=== PATIENT | female | born 1950 | race Caucasian/White ===

== ENCOUNTER 2016-11-29 08:16 | Emergency (ER) | payer OTHER ==
--- NOTE | 2016-11-29 09:26 | RADIOLOGY REPORT (SQ) ---
EXAM DESCRIPTION: ANKLE LEFT COMPLETE COMPLETED DATE/TIME: 11/29/2016 9:00 am REASON FOR STUDY: bed3 +deformity COMPARISON: None. NUMBER OF VIEWS: Three views. TECHNIQUE: AP, lateral, and oblique radiographic images acquired of the left ankle. LIMITATIONS: Artifact from aluminum splint FINDINGS: MINERALIZATION: Normal. BONES: Acute trimalleolar fracture. There is lateral and dorsal subluxation of the talus with respec t to the distal tibia articular surface. JOINTS: Disrupted ankle mortise SOFT TISSUES: Diffuse soft tissue swelling OTHER: Tiny plantar calcaneal spur IMPRESSION: Acute trimalleolar fracture with disrupted ankle mortise and dorsal and lateral subluxat ion of the talus with respect to the distal tibia TECHNICAL DOCUMENTATION: JOB ID: [id number] [employer]- All Rights Reserved
[2016-11-29] MEDS ORDERED: ONDANSETRON HCL INJ/PF 4 MG/2 ML SDV IV ONE (09:28)
[2016-11-29] MEDS ORDERED: HYDROMORPHONE HCL INJ/PF 2 MG/ML AMPULE IV ONE (09:28)
[2016-11-29] MEDS ORDERED: MIDAZOLAM 2 MG/2 ML INJ IV ONE (09:39)
[2016-11-29] MEDS ORDERED: KETAMINE HCL INJ 500 MG/10 ML VIAL IV ONE (09:39)
--- NOTE | 2016-11-29 10:44 | ER Document Report ---
ED General - General Chief Complaint: Ankle Injury Stated Complaint: LEFT ANKLE INJURY Time Seen by Provider: 11/29/16 08:50 - HPI Patient complains to provider of: Left ankle injury Notes: Patient coming in for evaluation of left ankle pain. Patient states tripped over some stairs denies any loss of consciousness. Patient denies fevers chills nausea vomiting diarrhea denies any past medical history significant for blood thinning medications denies any syncopal-like symptoms. Patient states was a trip and fall. Denies any other injuries. Past Medical History - Social History Smoking Status: Never Smoker Chew tobacco use (# tins/day): No Frequency of alcohol use: Occasional Drug Abuse: None Family History: Reviewed & Not Pertinent - Past Medical History Cardiac Medical History: Reports: Hx Hypercholesterolemia Musculoskeltal Medical History: Reports Hx Arthritis - osteoarthritis Past Surgical History: Reports: Hx Cholecystectomy, Hx Hysterectomy Review of Systems - Review of Systems Constitutional: No symptoms reported EENT: No symptoms reported Cardiovascular: No symptoms reported Respiratory: No symptoms reported Gastrointestinal: No symptoms reported Genitourinary: No symptoms reported Female Genitourinary: No symptoms reported Musculoskeletal: Other - Ankle pain Skin: No symptoms reported Hematologic/Lymphatic: No symptoms reported Neurological/Psychological: No symptoms reported Physical Exam - Vital signs Vitals: Resp BP Pulse Ox 16 132/81 H 96 11/29/16 10:01 11/29/16 10:01 11/29/16 10:01 Interpretation: Normal - General General appearance: Appears well, Alert - HEENT Head: Normocephalic, Atraumatic Eyes: Normal Pupils: PERRL - Respiratory Respiratory status: No respiratory distress Chest status: Nontender Breath sounds: Normal Chest palpation: Normal - Cardiovascular Rhythm: Regular Heart sounds: Normal auscultation Murmur: No - Abdominal Inspection: Normal Distension: No distension Bowel sounds: Normal Tenderness: Nontender Organomegaly: No organomegaly - Back Back: Normal, Nontender - Extremities General upper extremity: Normal inspection, Nontender, Normal color, Normal ROM , Normal temperature General lower extremity: Tender, Normal color, Normal temperature. No: Normal inspection - Patient with obvious deformity swelling to bilateral malleoli of the left ankle. Patient does have also minor swelling and bruising to the lateral malleolus and dorsum of the right foot., Elvira's sign - Neurological Neuro grossly intact: Yes Cognition: Normal Orientation: AAOx4 [place] Coma Scale Eye Opening: Spontaneous [place] Coma Scale Verbal: Oriented Cuco Coma Scale Motor: Obeys Commands [place] Coma Scale Total: 15 Speech: Normal Motor strength normal: LUE, RUE, LLE, RLE Sensory: Normal - Psychological Associated symptoms: Normal affect, Normal mood - Skin Skin Temperature: Warm Skin Moisture: Dry Skin Color: Normal Course - Re-evaluation Re-evalutation: 11/29/16 15:08 Patient is visiting from [facility] her supposed to return to [place] today. Patient x-ray shows a trimalleolar fracture did discuss with orthopedics recommended reduction and splinting however patient to be discharged. Patient agreed with this option at this time did inform patient more likely she will have to undergo surgery. Consent was signed patient underwent conscious sedation and splinting with slight reduction of the fracture. Patient was encouraged follow-up primary care physician take pain medication as prescribed return to the ER symptoms worsen. - Vital Signs Vital signs: Temp Pulse Resp BP Pulse Ox 93 16 101/69 97 11/29/16 11:52 11/29/16 11:52 11/29/16 13:02 11/29/16 13:02 Procedures - Conscious Sedation Conscious sedation Time started: 10:10 - Approximate time Time completed: 10:20 - Approximate time Consent obtained: Yes Indication: Reduction of fracture Last meal: 4 hours prior to arrival 6:00 Pt with a mild systemic disease.: P2. - ASA Classification. Airway Evaluation: Normal anatomy Mallampati Classification: Class 2 Used during procedure: Suction available, IV access obtained, Pulse ox on pt., tip cutter on pt. Medications administered: Versed, Ketamine Reversal agents: None I personally performed/intraservice time: Sedation, Procedure, 30 min or less Complications: No - Immobilization Left Immobilizer type: Other - Posterior short leg and ankle stirrup Performed by: Provider assisted Post-Proc Neuro Vasc Exam: Normal Alignment checked and good: Yes - Joint Reduction/Fracture Care Left Ankle Consent obtained: Yes Conscious sedation: Yes Pre-procedure NV exam: Yes Fracture: Closed Manipulation comment: Gentle traction Post-procedure NV exam: Yes Post-reduction x-ray: Joint reduced Reduction attempts: 1 Complications: No Discharge - Discharge Clinical Impression: Trimalleolar fracture of ankle, closed Qualifiers: Encounter type: initial encounter Laterality: left Qualified Code(s): S82.852A - Displaced trimalleolar fracture of left lower leg, initial encounter for closed fracture Condition: Good Disposition: HOME, SELF-CARE Instructions: Ankle Stirrup Splint ([facility]), Use of Crutches ([facility]), Oral Narcotic Medication ([facility]) Additional Instructions: Your x-ray today shows a trimalleolar fracture more likely will require surgery. At this time we have resplinted your leg to further align the bones. This will help alleviate some of the pain. Please ambulate with crutches as needed. Take pain medication as prescribed he may also take Tylenol Motrin. Please make sure that you are taking a stool softener or laxative to prevent opiate-induced constipation. While resting please elevate your leg. Please follow-up with orthopedic doctor in 5-7 days. Prescriptions: Ondansetron [Zofran Odt 4 mg Tablet] 4 mg PO Q4HP PRN #30 tab.rapdis PRN Reason: Oxycodone HCl 5 - 10 mg PO Q6 #40 tablet
--- NOTE | 2016-11-29 11:28 | RADIOLOGY REPORT (SQ) ---
EXAM DESCRIPTION: ANKLE BILATERAL AP/LAT COMPLETED DATE/TIME: 11/29/2016 11:15 am REASON FOR STUDY: post splint COMPARISON: None. NUMBER OF VIEWS: Three views. TECHNIQUE: AP, lateral, and oblique radiographic images acquired of the left ankle. LIMITATIONS: None. FINDINGS: MINERALIZATION: Normal. BONES: Displaced fractures of distal fibula and medial malleolus are present. The tibia is slightly displaced medially in relation to the talus. JOINTS: No effusions. SOFT TISSUES: No soft tissue swelling. No foreign body. OTHER: No other significant finding. IMPRESSION: Displaced fractures with mild medial subluxation of the tibia. TECHNICAL DOCUMENTATION: JOB ID: [id number] [employer]- All Rights Reserved
[2016-11-29 13:19] VITALS: BP 101/69
== END 2016-11-29 13:07 | disposition home or self-care (01) ==
LOC: ER 08:16
DX: S82.852A Displaced trimalleolar fracture of left lower leg, initial encounter for closed fracture (principal); W10.8XXA Fall (on) (from) other stairs and steps, initial encounter; Y92.008 Other place in unspecified non-institutional (private) residence as the place of occurrence of the external cause
CPT/HCPCS: 99283; 99152; 96374; 96375; 73610; 73600; 27818; J2250; J3490; J1170; J2405